=== PATIENT | male | born 1955 | race Caucasian/White ===

== ENCOUNTER 2016-12-06 06:00 | Day surgery (SDC) | payer BC ==
--- NOTE | ~2016-12-06 | EGD ---
EGD REPORT [facility] [address] [place] [address] NAME: DENIS RODRIGUEZ : [birth year] STATUS : REG [facility] PAT#: [id number] AGE: 61 ADM/REG DATE : 12/06/16 MR#: [id number] REPORT SERV DATE: 12/06/16 DICTATED BY: TAMMY MCNEILL DATE: 12/06/16 REPORT STATUS : Draft [facility]: [facility] DATE: 12/06/16 [facility] Patient Name: Denis Rodriguez Date of : 1955 Attending MD: SHIVAM MCNEILL MD Procedure Date No Time: 12/06/2016 Procedure: Colonoscopy Indications: Hematochezia Referring MD: DENIS ESPINAL Medicines: See the Anesthesia note for documentation of the administered medications Complications: No immediate complications. Estimated blood loss: Minimal. Procedure: Pre-Anesthesia Assessment: - ASA Grade Assessment: III - A patient with severe systemic disease. - Prior to the procedure, a History and Physical was performed, and patient medications and allergies were reviewed. The patient's tolerance of previous anesthesia was also reviewed. The risks and benefits of the procedure and the sedation options and risks were discussed with the patient. All questions were answered, and informed consent was obtained. Prior Anticoagulants: The patient has taken no previous anticoagulant or antiplatelet agents. After reviewing the risks and benefits, the patient was deemed in satisfactory condition to undergo the procedure. After I obtained informed consent, the scope was passed under direct vision. Throughout the procedure, the patient's blood pressure, pulse, and oxygen saturations were monitored continuously. The PCF [id number] was introduced through the anus and advanced to the terminal ileum. The ileocecal valve, appendiceal orifice, terminal ileum and rectum were photographed. The entire colon was examined. The colonoscopy was performed without difficulty. The patient tolerated the procedure well. The quality of the bowel preparation was adequate. Findings: The perianal and digital rectal examinations were normal. The terminal ileum appeared normal. Multiple small and large-mouthed diverticula were found in the entire colon. Non-bleeding internal hemorrhoids were found during retroflexion and were Grade I (internal hemorrhoids that do not prolapse). EGD REPORT [address] [place]. [address] NAME: DENIS RODRIGUEZ : [birth year] STATUS : REG [facility]#: [id number] AGE: 61 ADM/REG DATE : 12/06/16 MR#: [id number] REPORT SERV DATE: 12/06/16 DICTATED BY: TAMMY MCNEILL DATE: 12/06/16 REPORT STATUS : Draft TRANSCRIBED BY: [employer] DATE: 12/06/16 No other significant abnormalities were identified in a careful examination of the remainder of the colon. Impression: - The examined portion of the ileum was normal. - Diverticulosis in the entire examined colon. - Non-bleeding internal hemorrhoids. Recommendation: - Patient has a contact number available for emergencies. The signs and symptoms of potential delayed complications were discussed with the patient. Return to normal activities tomorrow. Written discharge instructions were provided to the patient. - High fiber diet indefinitely. - Discharge patient to home. - Continue present medications. - Repeat colonoscopy in 10 years for surveillance. Procedure Code(s): --- Professional --- 14864, Colonoscopy, flexible, proximal to splenic flexure; diagnostic, with or without collection of specimen(s) by brushing or washing, with or without colon decompression (separate procedure) Diagnosis Code(s): --- Professional --- K64.0, First degree hemorrhoids K57.30, Diverticulosis of large intestine without perforation or abscess without bleeding K92.1, Melena CPT copyright 2013 [employer]. All rights reserved. The codes documented in this report are preliminary and upon assessment consultant review may be revised to meet current compliance requirements. SHIVAM MCNEILL MD 12/06/2016 7:48 AM This report has been signed electronically. Number of Addenda: 0 Note Initiated On: 12/06/2016 7:20 AM Scope Withdrawal Time 0 hours 6 minutes 16 seconds [address] [id number]
[~2016-12-06 06:00] MED LIST: C5; METAMUCIL CAN7 OZ PO; METPAKSF PO; NEXIUM40 PO; PCET PO; ZESTRIL10 MG PO
== END 2016-12-06 23:59 | disposition home or self-care (01) ==
LOC: DMU 06:00
PROVIDERS: Internal Medicine Gastroenterology
PROC: 0DJD8ZZ Inspection of Lower Intestinal Tract, Via Natural or Artificial Opening Endoscopic (ICD-10-PCS; principal; 2016-12-06 07:30)
DX: K57.30 Diverticulosis of large intestine without perforation or abscess without bleeding (principal); K64.0 First degree hemorrhoids; K92.1 Melena; I10 Essential (primary) hypertension; G47.33 Obstructive sleep apnea (adult) (pediatric); M19.90 Unspecified osteoarthritis, unspecified site; K21.9 Gastro-esophageal reflux disease without esophagitis; Z88.1 Allergy status to other antibiotic agents; Z88.8 Allergy status to other drugs, medicaments and biological substances; Z91.013 Allergy to seafood; Z98.890 Other specified postprocedural states; Z79.899 Other long term (current) drug therapy